=== PATIENT | male | born 1940 | race Caucasian/White ===

== ENCOUNTER 2017-09-08 22:54 | Inpatient (IN) ==
[2017-09-09] MEDS ORDERED: MAGNESIUM SULF RIDER 2 GM in PREMIX 1 EACH IV PRN (00:10)
[2017-09-09] MEDS ORDERED: ACETAMINOPHEN 325 MG TABLET PO PRN (00:10)
[2017-09-09] MEDS ORDERED: ZALEPLON 5 MG CAPSULE PO PRN (00:10)
[2017-09-09] MEDS ORDERED: MAGNESIUM SULF RIDER 4 GM in PREMIX 1 EACH IV PRN (00:10)
[2017-09-09] MEDS: AZITHROMYCIN INJ 500 MG in SODIUM CHLORIDE 0.9% 250 ML IV SCH (01:38)
[2017-09-09] MEDS: ALBUTEROL/IPRATROPIUM 3 ML NEB RESP TX SCH ×4 (02:13→19:00)
[2017-09-09] MEDS: cefTRIAXone 1,000 MG in SYRINGE 1 EACH IV SCH (02:55)
[2017-09-09 04:32] LABS: Basophils % 0.4 % (0.0-0.8); Eosinophils # 0.7 10*3/uL (0.0-0.87); Eosinophils % 7.9 % (0.00-10.9); Hematocrit 28.6 VOL% (42.0-52.0); Hemoglobin 9.9 GM/DL (14.0-18.0); Immature Granulocytes % 0.6 %; Immature Granulocytes Absolute 0.05 #; Lymphocytes # 0.9 10*3/uL (1.4-4.0); Lymphocytes % 9.8 % (21.2-54.2); Mean Corpuscular HGB Conc 34.6 GM/DL (32-36); Mean Corpuscular Hemoglobin 28 PG (27-34); Mean Corpuscular Volume 81.3 FL (87-102); Mean Platelet Volume 9.7 FL (9.6-12.0); Monocytes # 0.7 10*3/uL (0.11-0.8); Monocytes % 7.2 % (1.7-12.7); Neutrophils # 6.7 10*3/uL (1.4-7.4); Neutrophils % 74.1 % (38.7-73.9); Platelet Count 303 T/CUMM (130-400); Red Blood Count 3.52 MC/CUMM (3.8-5.5); Red Cell Distribution Width 11.8 % (9.3-17.3)
[2017-09-09 05:12] LABS: VLDL CHOLESTEROL 17.4 MG/DL
[2017-09-09] MEDS ORDERED: DEXTROSE 50% 25 GM/50 ML VIAL IV PRN (07:58)
[2017-09-09] MEDS ORDERED: GLUCAGON 1 MG VIAL IM PRN (07:58)
[2017-09-09 08:10] LABS: Alanine Aminotransferase 13 U/L (16-61); Albumin 2.8 G/DL (3.4-5.0); Alkaline Phosphatase 108 U/L (45-117); Aspartate Amino Transferase 12 U/L (0-37); Bilirubin,Total < 0.39 MG/DL (0.2-1.0); Blood Urea Nitrogen 37 MG/DL (7-18); Calcium 7.4 MG/DL (8.5-10.1); Total Protein 6.7 G/DL (6.4-8.3)
[2017-09-09 08:11] LABS: Glucose 138 MG/DL (74-106); Osmolality,Calculated 261.5 MOS/KG (273-304); Potassium 4.5 MMOL/L (3.5-5.1); Sodium 125 MMOL/L (136-145)
[2017-09-09 08:25] LABS: PT Patient Result 10.5 SECS
[2017-09-09 08:29] LABS: Albumin 2.8 G/DL (3.4-5.0); Total Protein 6.7 G/DL (6.4-8.3)
[2017-09-09] MEDS: FUROSEMIDE 40 MG/4 ML VIAL IV SCH ×2 (08:42→15:25)
[2017-09-09] MEDS: FOLIC ACID 1 MG TABLET PO SCH (08:42)
[2017-09-09] MEDS: ASPIRIN CHEW 81 MG TABLET PO SCH (08:42)
[2017-09-09] MEDS: PANTOPRAZOLE 40 MG TABLET PO SCH (08:42)
[2017-09-09] MEDS ORDERED: amLODIPine 10 MG TABLET PO SCH (09:00)
[2017-09-09] MEDS ORDERED: METOPROLOL TARTRATE 50 MG TABLET PO SCH (09:00)
[2017-09-09] MEDS ORDERED: ENOXAPARIN 30 MG/0.3 ML SYRINGE SUBCUT SCH (09:00)
[2017-09-09 12:00] LABS: Eosinophils,Pleural Fluid 18 %; Lymphocytes,Pleural Fluid 15 %; Neutrophils,Pleural Fluid 67 %; RBC,Pleural Fluid 348 T/CUMM
[2017-09-09 12:11] LABS: Glucose,Pleural Fluid 146 MG/DL
[2017-09-09] MEDS: INSULIN LISPRO 100 UNIT/ML SUBCUT SCH ×3 (12:14→20:53)
[2017-09-09] MEDS: ISOSORBIDE MONONITRATE 30 MG TABLET PO SCH (12:14)
[2017-09-09] MEDS: hydrALAZINE 25 MG TABLET PO SCH ×2 (15:26→20:50)
[2017-09-09 19:02] LABS: Free T4 (Free Thyroxine) 1.13 NG/DL (0.76-1.46); Thyroid Stimulating Hormone 1.89 uIU/ml (0.358-3.74)
[2017-09-09] MEDS: APIXABAN 2.5 MG TABLET PO SCH (20:50)
[2017-09-09] MEDS: CARVEDILOL 6.25 MG TABLET PO SCH (20:50)
[2017-09-09] MEDS ORDERED: INSULIN GLARGINE 100 UNIT/ML SUBCUT SCH (21:00)
[2017-09-10] MEDS: ALBUTEROL/IPRATROPIUM 3 ML NEB RESP TX SCH ×4 (00:03→19:23)
[2017-09-10] MEDS: AZITHROMYCIN INJ 500 MG in SODIUM CHLORIDE 0.9% 250 ML IV SCH (02:50)
[2017-09-10] MEDS: cefTRIAXone 1,000 MG in SYRINGE 1 EACH IV SCH (03:59)
[2017-09-10 05:46] LABS: Basophils % 0.6 % (0.0-0.8); Eosinophils % 14.9 % (0.00-10.9); Hematocrit 25.9 VOL% (42.0-52.0); Immature Granulocytes % 0.3 %; Immature Granulocytes Absolute 0.02 #; Lymphocytes # 0.9 10*3/uL (1.4-4.0); Lymphocytes % 12.4 % (21.2-54.2); Mean Corpuscular HGB Conc 34.7 GM/DL (32-36); Mean Corpuscular Hemoglobin 28 PG (27-34); Mean Corpuscular Volume 79.9 FL (87-102); Mean Platelet Volume 9.6 FL (9.6-12.0); Monocytes # 0.7 10*3/uL (0.11-0.8); Monocytes % 10.1 % (1.7-12.7); Neutrophils # 4.3 10*3/uL (1.4-7.4); Neutrophils % 61.7 % (38.7-73.9); Platelet Count 282 T/CUMM (130-400); Red Blood Count 3.24 MC/CUMM (3.8-5.5); Red Cell Distribution Width 11.9 % (9.3-17.3); White Blood Count 6.9 T/CUMM (4-12)
[2017-09-10 06:15] LABS: Band Neutrophils 6 % (0-10); Eosinophils 16 % (0-10); Lymphocytes 8 % (20-55); Myelocytes 3 %; Segmented Neutrophils 66 % (50-85); Total Cells Counted 100
[2017-09-10 06:16] LABS: Anisocytosis 1+; Platelet Estimate Normal
[2017-09-10 06:22] LABS: Albumin 2.5 G/DL (3.4-5.0); Bilirubin,Total 0.8 MG/DL (0.2-1.0); Calcium 7.3 MG/DL (8.5-10.1); Osmolality,Calculated 263.9 MOS/KG (273-304); Potassium 4.2 MMOL/L (3.5-5.1); Total Protein 6.1 G/DL (6.4-8.3)
[2017-09-10] MEDS: FUROSEMIDE 40 MG/4 ML VIAL IV SCH (08:43)
[2017-09-10] MEDS: ASPIRIN CHEW 81 MG TABLET PO SCH (08:44)
[2017-09-10] MEDS: hydrALAZINE 25 MG TABLET PO SCH (08:44)
[2017-09-10] MEDS: FOLIC ACID 1 MG TABLET PO SCH (08:45)
[2017-09-10] MEDS: CARVEDILOL 6.25 MG TABLET PO SCH ×2 (08:45→20:33)
[2017-09-10] MEDS: PANTOPRAZOLE 40 MG TABLET PO SCH (08:45)
[2017-09-10] MEDS: APIXABAN 2.5 MG TABLET PO SCH ×2 (08:45→20:33)
[2017-09-10] MEDS: INSULIN LISPRO 100 UNIT/ML SUBCUT SCH ×4 (09:32→20:37)
[2017-09-10] MEDS: ISOSORBIDE MONONITRATE 30 MG TABLET PO SCH (09:32)
[2017-09-11] MEDS: ALBUTEROL/IPRATROPIUM 3 ML NEB RESP TX SCH ×3 (00:23→12:36)
[2017-09-11] MEDS: cefTRIAXone 1,000 MG in SYRINGE 1 EACH IV SCH (04:23)
[2017-09-11 05:31] LABS: Basophils # 0.1 10*3/uL (0.0-0.2); Basophils % 0.8 % (0.0-0.8); Eosinophils # 1.4 10*3/uL (0.0-0.87); Eosinophils % 15.7 % (0.00-10.9); Hematocrit 26.5 VOL% (42.0-52.0); Hemoglobin 9.4 GM/DL (14.0-18.0); Immature Granulocytes % 0.4 %; Immature Granulocytes Absolute 0.04 #; Lymphocytes # 0.7 10*3/uL (1.4-4.0); Lymphocytes % 7.9 % (21.2-54.2); Mean Corpuscular HGB Conc 35.5 GM/DL (32-36); Mean Corpuscular Hemoglobin 29 PG (27-34); Mean Platelet Volume 9.3 FL (9.6-12.0); Monocytes # 0.8 10*3/uL (0.11-0.8); Monocytes % 8.6 % (1.7-12.7); Neutrophils % 66.6 % (38.7-73.9); Platelet Count 296 T/CUMM (130-400); Red Blood Count 3.27 MC/CUMM (3.8-5.5); Red Cell Distribution Width 11.9 % (9.3-17.3)
[2017-09-11 06:00] LABS: Calcium 7.5 MG/DL (8.5-10.1); Osmolality,Calculated 267.9 MOS/KG (273-304); Potassium 4.6 MMOL/L (3.5-5.1)
[2017-09-11 06:03] LABS: Albumin 2.5 G/DL (3.4-5.0); Band Neutrophils 2 % (0-10); Bilirubin,Total 0.4 MG/DL (0.2-1.0); Calcium 7.4 MG/DL (8.5-10.1); Eosinophils 14 % (0-10); Lymphocytes 13 % (20-55); Osmolality,Calculated 267.9 MOS/KG (273-304); Potassium 4.6 MMOL/L (3.5-5.1); Segmented Neutrophils 70 % (50-85); Total Cells Counted 100; Total Protein 6.1 G/DL (6.4-8.3)
[2017-09-11 06:07] LABS: Microcytosis Slight
[2017-09-11] MEDS: FOLIC ACID 1 MG TABLET PO SCH (08:28)
[2017-09-11] MEDS: APIXABAN 2.5 MG TABLET PO SCH (08:28)
[2017-09-11] MEDS: CARVEDILOL 6.25 MG TABLET PO SCH (08:28)
[2017-09-11] MEDS: PANTOPRAZOLE 40 MG TABLET PO SCH (08:28)
[2017-09-11] MEDS: ASPIRIN CHEW 81 MG TABLET PO SCH (08:28)
[2017-09-11] MEDS ORDERED: FUROSEMIDE 40 MG/4 ML VIAL IV SCH (09:00)
[2017-09-11] MEDS ORDERED: AZITHROMYCIN 250 MG TABLET PO SCH (09:00)
[2017-09-11 12:01] VITALS: BP 123/98
[2017-09-11] MEDS: INSULIN LISPRO 100 UNIT/ML SUBCUT SCH ×2 (12:37→12:39)
[2017-09-12] MEDS ORDERED: FUROSEMIDE 80 MG TABLET PO SCH (09:00)
[2017-09-13 18:21] LABS: TB Ag minue Nil Result 0 IU/mL
== END 2017-09-11 14:30 | disposition home or self-care (01) | DRG 291 ==
LOC: EDBD → EDUNIT# → N.ED 22:54 → N.EDINP 09-09 00:10 → SUATTDRO 09-09 00:10 → N.CC 09-09 01:16 → N.TELEN 09-09 13:40
PROVIDERS: ADMIT Internal Medicine; ATTEND Internal Medicine

== ENCOUNTER 2018-06-28 13:36 | Inpatient (IN) ==
[2018-06-28 15:36] LABS: Basophils % 0.4 % (0.0-0.8); Eosinophils # 0.4 10*3/uL (0.0-0.87); Eosinophils % 4.9 % (0.00-10.9); Hematocrit 29.9 VOL% (42.0-52.0); Hemoglobin 10.8 GM/DL (14.0-18.0); Immature Granulocytes % 0.6 %; Immature Granulocytes Absolute 0.05 #; Lymphocytes # 0.7 10*3/uL (1.4-4.0); Lymphocytes % 8.5 % (21.2-54.2); Mean Corpuscular HGB Conc 36.1 GM/DL (32-36); Mean Corpuscular Hemoglobin 28 PG (27-34); Mean Corpuscular Volume 78.7 FL (87-102); Mean Platelet Volume 8.9 FL (9.6-12.0); Monocytes # 0.6 10*3/uL (0.11-0.8); Monocytes % 8.3 % (1.7-12.7); Neutrophils % 77.3 % (38.7-73.9); Platelet Count 275 T/CUMM (130-400); Red Cell Distribution Width 12.4 % (9.3-17.3); White Blood Count 7.8 T/CUMM (4-12)
[2018-06-28 15:46] LABS: PT Patient Result 10.8 SECS; Partial Thromboplastin Time 36.3 SECS (0-40)
[2018-06-28 15:51] LABS: Albumin 3.3 G/DL (3.4-5.0); Bilirubin,Total 0.6 MG/DL (0.2-1.0); Calcium 8.2 MG/DL (8.5-10.1); Osmolality,Calculated 250.8 MOS/KG (273-304); Potassium 3.5 MMOL/L (3.5-5.1); Total Protein 7.9 G/DL (6.4-8.3)
[2018-06-28] MEDS ORDERED: FUROSEMIDE 100 MG/10 ML VIAL IV STA (15:55)
[2018-06-28] MEDS ORDERED: ALBUTEROL NEB SOLN 5 MG/ML 20 ML/BOTTLE RESP TX SCH (16:00)
[2018-06-28 16:08] LABS: Troponin I 0.018 NG/ML (0.00-0.045)
[2018-06-28] MEDS ORDERED: DEXTROSE 50% 25 GM/50 ML VIAL IV PRN (17:00)
[2018-06-28] MEDS ORDERED: MAGNESIUM SULF RIDER 4 GM in PREMIX 1 EACH IV PRN (17:00)
[2018-06-28] MEDS ORDERED: MAGNESIUM SULF RIDER 2 GM in PREMIX 1 EACH IV PRN (17:00)
[2018-06-28] MEDS ORDERED: ACETAMINOPHEN 325 MG TABLET PO PRN (17:00)
[2018-06-28] MEDS ORDERED: GLUCAGON 1 MG VIAL IM PRN (17:00)
[2018-06-28] MEDS: cloNIDine 0.1 MG TABLET PO SCH ×2 (22:13→23:41)
[2018-06-28] MEDS: FERROUS SULFATE 325 MG TABLET PO SCH ×2 (22:14→23:41)
[2018-06-28] MEDS: CARVEDILOL 6.25 MG TABLET PO SCH ×2 (22:14→23:41)
[2018-06-28] MEDS: APIXABAN 2.5 MG TABLET PO SCH ×2 (22:14→23:41)
[2018-06-28] MEDS: ONDANSETRON 4 MG/2 ML VIAL IV PRN (22:32)
[2018-06-28] MEDS ORDERED: hydrALAZINE 20 MG/1 ML VIAL IV PRN (23:37)
[2018-06-28] MEDS: metOLazone 5 MG TABLET PO SCH (23:40)
[2018-06-28] MEDS: INSULIN REGULAR 100 UNIT/ML SUBCUT SCH (23:41)
[2018-06-28] MEDS: NITROGLYCERIN 2% OINT 1 INCH/GM PACK TOP SCH (23:41)
[2018-06-28] MEDS: INSULIN GLARGINE 100 UNIT/ML SUBCUT SCH (23:42)
[2018-06-29] MEDS ORDERED: ENOXAPARIN 120 MG/0.8 ML SYRINGE SUBCUT ONE
[2018-06-29] MEDS ORDERED: ENOXAPARIN 100 MG/ML SYRINGE SUBCUT ONE
[2018-06-29] MEDS: FUROSEMIDE 40 MG/4 ML VIAL IV SCH ×4 (00:16→16:30)
[2018-06-29] MEDS: NITROGLYCERIN 2% OINT 1 INCH/GM PACK TOP SCH ×4 (00:16→18:59)
[2018-06-29] MEDS: MUPIROCIN 2% OINT 22 GM TUBE TOP SCH ×3 (01:17→22:28)
[2018-06-29] MEDS ORDERED: ZALEPLON 5 MG CAPSULE PO PRN (02:38)
[2018-06-29 02:57] LABS: Basophils % 0.3 % (0.0-0.8); Eosinophils # 0.1 10*3/uL (0.0-0.87); Eosinophils % 1.1 % (0.00-10.9); Hematocrit 29.3 VOL% (42.0-52.0); Hemoglobin 10.6 GM/DL (14.0-18.0); Immature Granulocytes % 0.8 %; Immature Granulocytes Absolute 0.08 #; Lymphocytes # 0.6 10*3/uL (1.4-4.0); Lymphocytes % 6.2 % (21.2-54.2); Mean Corpuscular HGB Conc 36.2 GM/DL (32-36); Mean Corpuscular Hemoglobin 28 PG (27-34); Mean Corpuscular Volume 77.1 FL (87-102); Mean Platelet Volume 9.4 FL (9.6-12.0); Monocytes # 0.6 10*3/uL (0.11-0.8); Monocytes % 6.1 % (1.7-12.7); Neutrophils # 8.7 10*3/uL (1.4-7.4); Neutrophils % 85.5 % (38.7-73.9); Platelet Count 287 T/CUMM (130-400); Red Cell Distribution Width 12.4 % (9.3-17.3); White Blood Count 10.2 T/CUMM (4-12)
[2018-06-29 05:00] LABS: Calcium 8.3 MG/DL (8.5-10.1); Osmolality,Calculated 251.8 MOS/KG (273-304); Potassium 3.3 MMOL/L (3.5-5.1); Risk Ratio 3.26; Thyroid Stimulating Hormone 0.932 uIU/ml (0.358-3.74); VLDL CHOLESTEROL 12.8 MG/DL
[2018-06-29] MEDS: POTASSIUM CHLORIDE 20 MEQ TABLET PO PRN (05:28)
[2018-06-29] MEDS: ONDANSETRON 4 MG/2 ML VIAL IV PRN ×2 (05:41→21:35)
[2018-06-29] MEDS ORDERED: POTASSIUM CHLORIDE RIDER 10 MEQ in PREMIX 1 EACH IV PRN (05:42)
[2018-06-29] MEDS ORDERED: POTASSIUM CHLORIDE 20 MEQ TABLET PO ONE (08:18)
[2018-06-29] MEDS ORDERED: ASPIRIN EC 81 MG TABLET PO SCH (09:00)
[2018-06-29 09:18] LABS: Apearance,Urine CLOUDY (Clear); Bilirubin,Urine Negative (Negative); Blood, Urine Moderate mg/dL (Negative); Glucose,Urine (UA) Negative (Negative); Ketones,Urine Negative (Negative); Mucus,Urine Occasional /LPF (Occasional); Nitrite,Urine Negative (Negative); Protein,Urine 30 MG/DL; RBC,Urine 14 /HPF (0-4); Urine Color Yellow (Yellow); Urine Specific Gravity 1.004 (1.001-1.035); Urine Urobilinogen < 2.0 EU/DL (0.2-1.0); WBC,Urine 2317 /HPF (0-6)
[2018-06-29 10:14] LABS: INR 1.1; PT Patient Result 11.4 SECS
[2018-06-29] MEDS: SODIUM CHLORIDE 3% INJ 500 ML IV SCH (11:14)
[2018-06-29] MEDS: INSULIN REGULAR 100 UNIT/ML SUBCUT SCH ×4 (11:15→22:28)
[2018-06-29 12:39] LABS: Hematocrit 29.7 VOL% (42.0-52.0); Hemoglobin 10.9 GM/DL (14.0-18.0)
[2018-06-29 13:01] LABS: Potassium 3.8 MMOL/L (3.5-5.1)
[2018-06-29] MEDS: CARVEDILOL 6.25 MG TABLET PO SCH ×2 (13:09→21:35)
[2018-06-29] MEDS: DOXAZOSIN 4 MG TABLET PO SCH (13:09)
[2018-06-29] MEDS: cloNIDine 0.1 MG TABLET PO SCH ×2 (13:10→21:35)
[2018-06-29] MEDS: metOLazone 5 MG TABLET PO SCH (13:10)
[2018-06-29] MEDS: FOLIC ACID 1 MG TABLET PO SCH (13:10)
[2018-06-29] MEDS: FERROUS SULFATE 325 MG TABLET PO SCH ×2 (13:10→21:35)
[2018-06-29] MEDS: APIXABAN 2.5 MG TABLET PO SCH (13:17)
[2018-06-29 17:50] LABS: Hematocrit 28.4 VOL% (42.0-52.0); Hemoglobin 10.5 GM/DL (14.0-18.0)
[2018-06-29] MEDS: INSULIN GLARGINE 100 UNIT/ML SUBCUT SCH (22:29)
[2018-06-29 23:16] LABS: Hematocrit 24.7 VOL% (42.0-52.0); Hemoglobin 9.2 GM/DL (14.0-18.0)
[2018-06-29] MEDS: DESITIN 4OZ/NYSTATIN 15 GRAM MIXTURE PASTE TOP SCH ×2 (23:49→23:50)
[2018-06-30] MEDS: FUROSEMIDE 40 MG/4 ML VIAL IV SCH ×2 (01:05→05:14)
[2018-06-30] MEDS: NITROGLYCERIN 2% OINT 1 INCH/GM PACK TOP SCH ×5 (01:05→23:20)
[2018-06-30] MEDS: SODIUM CHLORIDE 3% INJ 500 ML IV SCH (04:32)
[2018-06-30 08:08] LABS: Basophils % 0.5 % (0.0-0.8); Eosinophils # 0.3 10*3/uL (0.0-0.87); Hematocrit 28.3 VOL% (42.0-52.0); Hemoglobin 10.3 GM/DL (14.0-18.0); Immature Granulocytes % 0.8 %; Immature Granulocytes Absolute 0.06 #; Lymphocytes # 0.5 10*3/uL (1.4-4.0); Mean Corpuscular HGB Conc 36.4 GM/DL (32-36); Mean Corpuscular Hemoglobin 29 PG (27-34); Mean Corpuscular Volume 78.6 FL (87-102); Mean Platelet Volume 9.4 FL (9.6-12.0); Monocytes # 0.7 10*3/uL (0.11-0.8); Monocytes % 8.9 % (1.7-12.7); Neutrophils # 6.3 10*3/uL (1.4-7.4); Neutrophils % 79.8 % (38.7-73.9); Platelet Count 236 T/CUMM (130-400); Red Cell Distribution Width 12.6 % (9.3-17.3); White Blood Count 7.9 T/CUMM (4-12)
[2018-06-30 08:40] LABS: Calcium 8.5 MG/DL (8.5-10.1); Osmolality,Calculated 261.9 MOS/KG (273-304); Potassium 3.6 MMOL/L (3.5-5.1)
[2018-06-30] MEDS ORDERED: SODIUM CHLORIDE 3% INJ 500 ML IV SCH (09:00)
[2018-06-30] MEDS: DOXAZOSIN 4 MG TABLET PO SCH (09:17)
[2018-06-30] MEDS: FOLIC ACID 1 MG TABLET PO SCH (09:17)
[2018-06-30] MEDS: INSULIN REGULAR 100 UNIT/ML SUBCUT SCH ×4 (09:17→21:16)
[2018-06-30] MEDS: cloNIDine 0.1 MG TABLET PO SCH ×2 (09:17→21:15)
[2018-06-30] MEDS: CARVEDILOL 6.25 MG TABLET PO SCH ×2 (09:18→16:40)
[2018-06-30] MEDS: FERROUS SULFATE 325 MG TABLET PO SCH ×2 (09:18→21:15)
[2018-06-30] MEDS: cefTRIAXone 1,000 MG in SYRINGE 1 EACH IV SCH (09:18)
[2018-06-30] MEDS: DESITIN 4OZ/NYSTATIN 15 GRAM MIXTURE PASTE TOP SCH ×2 (09:19→21:17)
[2018-06-30] MEDS: MUPIROCIN 2% OINT 22 GM TUBE TOP SCH ×2 (11:55→21:18)
[2018-06-30] MEDS: FUROSEMIDE 80 MG TABLET PO SCH (16:40)
[2018-06-30] MEDS: INSULIN GLARGINE 100 UNIT/ML SUBCUT SCH (21:17)
[2018-07-01] MEDS ORDERED: SODIUM CHLORIDE 3% INJ 500 ML IV SCH (03:00)
[2018-07-01 05:47] LABS: Basophils # 0.1 10*3/uL (0.0-0.2); Basophils % 0.7 % (0.0-0.8); Eosinophils # 0.7 10*3/uL (0.0-0.87); Eosinophils % 9.9 % (0.00-10.9); Hematocrit 27.1 VOL% (42.0-52.0); Hemoglobin 9.5 GM/DL (14.0-18.0); Immature Granulocytes % 0.8 %; Immature Granulocytes Absolute 0.06 #; Lymphocytes # 0.8 10*3/uL (1.4-4.0); Lymphocytes % 10.1 % (21.2-54.2); Mean Corpuscular HGB Conc 35.1 GM/DL (32-36); Mean Corpuscular Hemoglobin 29 PG (27-34); Mean Corpuscular Volume 81.9 FL (87-102); Mean Platelet Volume 9.4 FL (9.6-12.0); Monocytes # 0.8 10*3/uL (0.11-0.8); Monocytes % 10.3 % (1.7-12.7); Neutrophils # 5.1 10*3/uL (1.4-7.4); Neutrophils % 68.2 % (38.7-73.9); Platelet Count 229 T/CUMM (130-400); Red Blood Count 3.31 MC/CUMM (3.8-5.5); Red Cell Distribution Width 12.6 % (9.3-17.3); White Blood Count 7.5 T/CUMM (4-12)
[2018-07-01 06:05] LABS: Calcium 7.9 MG/DL (8.5-10.1); Osmolality,Calculated 277.8 MOS/KG (273-304); Potassium 2.9 MMOL/L (3.5-5.1)
[2018-07-01] MEDS: POTASSIUM CHLORIDE 20 MEQ TABLET PO PRN ×4 (06:40→16:33)
[2018-07-01] MEDS: NITROGLYCERIN 2% OINT 1 INCH/GM PACK TOP SCH ×3 (06:44→17:14)
[2018-07-01] MEDS: POTASSIUM CHLORIDE 20 MEQ TABLET PO SCH ×2 (09:00→20:48)
[2018-07-01] MEDS: INSULIN REGULAR 100 UNIT/ML SUBCUT SCH ×4 (09:00→20:49)
[2018-07-01] MEDS: DOXAZOSIN 4 MG TABLET PO SCH (09:00)
[2018-07-01] MEDS: FUROSEMIDE 80 MG TABLET PO SCH ×2 (09:00→16:34)
[2018-07-01] MEDS: FOLIC ACID 1 MG TABLET PO SCH (09:00)
[2018-07-01] MEDS: DESITIN 4OZ/NYSTATIN 15 GRAM MIXTURE PASTE TOP SCH ×2 (09:01→20:49)
[2018-07-01] MEDS: CARVEDILOL 6.25 MG TABLET PO SCH ×2 (09:01→16:32)
[2018-07-01] MEDS: cefTRIAXone 1,000 MG in SYRINGE 1 EACH IV SCH (09:01)
[2018-07-01] MEDS: cloNIDine 0.1 MG TABLET PO SCH ×2 (09:01→20:48)
[2018-07-01] MEDS: MUPIROCIN 2% OINT 22 GM TUBE TOP SCH ×2 (09:01→20:48)
[2018-07-01] MEDS: FERROUS SULFATE 325 MG TABLET PO SCH ×2 (09:01→20:48)
[2018-07-01] MEDS: INSULIN GLARGINE 100 UNIT/ML SUBCUT SCH (20:49)
[2018-07-02] MEDS: NITROGLYCERIN 2% OINT 1 INCH/GM PACK TOP SCH ×3 (02:04→12:17)
[2018-07-02 05:39] LABS: Basophils # 0.1 10*3/uL (0.0-0.2); Basophils % 0.6 % (0.0-0.8); Eosinophils # 0.9 10*3/uL (0.0-0.87); Eosinophils % 7.7 % (0.00-10.9); Hematocrit 26.7 VOL% (42.0-52.0); Immature Granulocytes % 0.8 %; Immature Granulocytes Absolute 0.09 #; Lymphocytes # 0.8 10*3/uL (1.4-4.0); Lymphocytes % 7.2 % (21.2-54.2); Mean Corpuscular HGB Conc 33.7 GM/DL (32-36); Mean Corpuscular Hemoglobin 28 PG (27-34); Mean Corpuscular Volume 83.4 FL (87-102); Mean Platelet Volume 9.6 FL (9.6-12.0); Monocytes % 8.6 % (1.7-12.7); Neutrophils # 8.5 10*3/uL (1.4-7.4); Neutrophils % 75.1 % (38.7-73.9); Platelet Count 244 T/CUMM (130-400); Red Cell Distribution Width 12.9 % (9.3-17.3); White Blood Count 11.4 T/CUMM (4-12)
[2018-07-02 06:13] LABS: Calcium 7.9 MG/DL (8.5-10.1); Osmolality,Calculated 283.7 MOS/KG (273-304); Potassium 4.1 MMOL/L (3.5-5.1)
[2018-07-02] MEDS: INSULIN REGULAR 100 UNIT/ML SUBCUT SCH ×4 (09:06→22:02)
[2018-07-02] MEDS: FUROSEMIDE 80 MG TABLET PO SCH ×2 (09:07→16:00)
[2018-07-02] MEDS: FOLIC ACID 1 MG TABLET PO SCH (09:07)
[2018-07-02] MEDS: POTASSIUM CHLORIDE 20 MEQ TABLET PO SCH ×2 (09:07→22:12)
[2018-07-02] MEDS: CARVEDILOL 6.25 MG TABLET PO SCH ×2 (09:07→16:00)
[2018-07-02] MEDS: cloNIDine 0.1 MG TABLET PO SCH ×2 (09:07→21:10)
[2018-07-02] MEDS: DOXAZOSIN 4 MG TABLET PO SCH (09:08)
[2018-07-02] MEDS: FERROUS SULFATE 325 MG TABLET PO SCH ×2 (09:08→21:10)
[2018-07-02] MEDS: cefTRIAXone 1,000 MG in SYRINGE 1 EACH IV SCH (09:08)
[2018-07-02] MEDS: DESITIN 4OZ/NYSTATIN 15 GRAM MIXTURE PASTE TOP SCH ×2 (09:09→21:10)
[2018-07-02] MEDS: MUPIROCIN 2% OINT 22 GM TUBE TOP SCH ×2 (09:10→21:10)
[2018-07-02] MEDS: INSULIN GLARGINE 100 UNIT/ML SUBCUT SCH (22:03)
[2018-07-03] MEDS: INSULIN REGULAR 100 UNIT/ML SUBCUT SCH ×4 (09:11→21:11)
[2018-07-03] MEDS: FOLIC ACID 1 MG TABLET PO SCH (09:12)
[2018-07-03] MEDS: cefTRIAXone 1,000 MG in SYRINGE 1 EACH IV SCH (09:12)
[2018-07-03] MEDS: cloNIDine 0.1 MG TABLET PO SCH ×2 (09:12→21:09)
[2018-07-03] MEDS: CARVEDILOL 6.25 MG TABLET PO SCH ×2 (09:13→16:22)
[2018-07-03] MEDS: MUPIROCIN 2% OINT 22 GM TUBE TOP SCH ×2 (09:13→21:11)
[2018-07-03] MEDS: FUROSEMIDE 80 MG TABLET PO SCH ×2 (09:13→16:22)
[2018-07-03] MEDS: POTASSIUM CHLORIDE 20 MEQ TABLET PO SCH ×2 (09:13→21:09)
[2018-07-03] MEDS: FERROUS SULFATE 325 MG TABLET PO SCH ×2 (09:13→21:09)
[2018-07-03] MEDS: DOXAZOSIN 4 MG TABLET PO SCH (09:13)
[2018-07-03] MEDS: DESITIN 4OZ/NYSTATIN 15 GRAM MIXTURE PASTE TOP SCH ×2 (09:14→21:11)
[2018-07-03] MEDS: INSULIN GLARGINE 100 UNIT/ML SUBCUT SCH (21:11)
[2018-07-04 08:57] LABS: Calcium 8.3 MG/DL (8.5-10.1); Osmolality,Calculated 280.8 MOS/KG (273-304); Potassium 4.4 MMOL/L (3.5-5.1)
[2018-07-04] MEDS: INSULIN REGULAR 100 UNIT/ML SUBCUT SCH ×3 (09:00→16:48)
[2018-07-04] MEDS: cefTRIAXone 1,000 MG in SYRINGE 1 EACH IV SCH (09:01)
[2018-07-04] MEDS: MUPIROCIN 2% OINT 22 GM TUBE TOP SCH (09:02)
[2018-07-04] MEDS: DESITIN 4OZ/NYSTATIN 15 GRAM MIXTURE PASTE TOP SCH (09:02)
[2018-07-04] MEDS: CARVEDILOL 6.25 MG TABLET PO SCH ×2 (09:25→16:48)
[2018-07-04] MEDS: FUROSEMIDE 80 MG TABLET PO SCH ×2 (09:26→16:48)
[2018-07-04] MEDS: FERROUS SULFATE 325 MG TABLET PO SCH (09:27)
[2018-07-04] MEDS: FOLIC ACID 1 MG TABLET PO SCH (09:27)
[2018-07-04] MEDS: DOXAZOSIN 4 MG TABLET PO SCH (09:27)
[2018-07-04] MEDS: cloNIDine 0.1 MG TABLET PO SCH (09:27)
[2018-07-04] MEDS: POTASSIUM CHLORIDE 20 MEQ TABLET PO SCH (09:27)
[2018-07-04] MEDS ORDERED: PROPOFOL 200 MG/20 ML VIAL IV ONE (11:10)
[2018-07-04] MEDS ORDERED: LIDOCAINE 2% 5 ML VIAL ONE (11:10)
[2018-07-04 16:51] VITALS: BP 162/72
[2018-07-05] MEDS ORDERED: FUROSEMIDE 80 MG TABLET PO SCH (09:00)
== END 2018-07-04 19:03 | disposition home or self-care (01) | DRG 640 ==
LOC: N.EDINP 13:36 → N.ED 13:36 → N.TELES 19:22 → SUATTDRO 06-29 08:35
PROVIDERS: ADMIT Internal Medicine; ATTEND Hospitalist

== ENCOUNTER 2018-10-28 10:22 | Observation (INO) ==
[2018-10-28] MEDS ORDERED: ALBUTEROL/IPRATROPIUM 3 ML NEB RESP TX STA (10:41)
[2018-10-28 11:23] LABS: Basophils % 0.3 % (0.0-0.8); Eosinophils % 0.5 % (0.00-10.9); Hematocrit 30.5 VOL% (42.0-52.0); Immature Granulocytes % 0.6 %; Immature Granulocytes Absolute 0.05 #; Lymphocytes # 0.6 10*3/uL (1.4-4.0); Lymphocytes % 7.9 % (21.2-54.2); Mean Corpuscular HGB Conc 32.8 GM/DL (32-36); Mean Corpuscular Hemoglobin 28 PG (27-34); Mean Platelet Volume 9.9 FL (9.6-12.0); Monocytes # 0.5 10*3/uL (0.11-0.8); Monocytes % 6.3 % (1.7-12.7); Neutrophils # 6.6 10*3/uL (1.4-7.4); Neutrophils % 84.4 % (38.7-73.9); Platelet Count 291 T/CUMM (130-400); Red Blood Count 3.59 MC/CUMM (3.8-5.5); Red Cell Distribution Width 15.3 % (9.3-17.3); White Blood Count 7.8 T/CUMM (4-12)
[2018-10-28 11:36] LABS: PT Patient Result 10.7 SECS; Partial Thromboplastin Time 30.8 SECS (0-40)
[2018-10-28 11:43] LABS: Alanine Aminotransferase 9 U/L (16-61); Albumin 2.3 G/DL (3.4-5.0); Alkaline Phosphatase 50 U/L (45-117); Aspartate Amino Transferase 5 U/L (0-37); Blood Urea Nitrogen 73 MG/DL (7-18); Calcium 8.2 MG/DL (8.5-10.1); Glucose 136 MG/DL (74-106); Osmolality,Calculated 300.5 MOS/KG (273-304); Potassium 3.9 MMOL/L (3.5-5.1); Sodium 139 MMOL/L (136-145); Total Protein 7.7 G/DL (6.4-8.3); Troponin I 0.036 NG/ML (0.00-0.045)
[2018-10-28] MEDS ORDERED: PROMETHAZINE 25 MG/1 ML VIAL IM PRN (13:12)
[2018-10-28] MEDS ORDERED: ACETAMINOPHEN 325 MG TABLET PO PRN (13:12)
[2018-10-28] MEDS ORDERED: ONDANSETRON 4 MG/2 ML VIAL IV PRN (13:12)
[2018-10-28] MEDS ORDERED: GLUCAGON 1 MG VIAL IM PRN (13:35)
[2018-10-28] MEDS ORDERED: DEXTROSE 50% 25 GM/50 ML VIAL IV PRN (13:35)
[2018-10-28] MEDS: PANTOPRAZOLE 40 MG TABLET PO SCH (15:02)
[2018-10-28] MEDS: FUROSEMIDE 40 MG/4 ML VIAL IV SCH (15:02)
[2018-10-28] MEDS ORDERED: FUROSEMIDE 40 MG/4 ML VIAL IV SCH (16:00)
[2018-10-28] MEDS: INSULIN LISPRO 100 UNIT/ML SUBCUT SCH ×2 (17:07→21:03)
[2018-10-28] MEDS ORDERED: FERROUS SULFATE 325 MG TABLET PO SCH (18:00)
[2018-10-28 18:20] LABS: Apearance,Urine Slightly Hazy (Clear); Bacteria,Urine Occasional /HPF (Few); Bilirubin,Urine Negative (Negative); Blood, Urine Negative (Negative); Glucose,Urine (UA) Negative (Negative); Ketones,Urine Negative (Negative); Mucus,Urine Occasional /LPF (Occasional); Nitrite,Urine Negative (Negative); Protein,Urine Negative; RBC,Urine 1 /HPF (0-4); Urine Color Yellow (Yellow); Urine Specific Gravity 1.008 (1.001-1.035); Urine Urobilinogen < 2.0 EU/DL (0.2-1.0); WBC,Urine 40 /HPF (0-6)
[2018-10-28] MEDS: cloNIDine 0.1 MG TABLET PO SCH (20:55)
[2018-10-28] MEDS: APIXABAN 2.5 MG TABLET PO SCH (20:55)
[2018-10-28] MEDS: CARVEDILOL 6.25 MG TABLET PO SCH (20:55)
[2018-10-28] MEDS ORDERED: INSULIN GLARGINE 100 UNIT/ML SUBCUT SCH (21:00)
[2018-10-29 05:58] LABS: Basophils % 0.5 % (0.0-0.8); Eosinophils # 0.2 10*3/uL (0.0-0.87); Eosinophils % 3.7 % (0.00-10.9); Hematocrit 28.8 VOL% (42.0-52.0); Hemoglobin 9.3 GM/DL (14.0-18.0); Immature Granulocytes % 0.8 %; Immature Granulocytes Absolute 0.05 #; Lymphocytes # 0.6 10*3/uL (1.4-4.0); Lymphocytes % 9.8 % (21.2-54.2); Mean Corpuscular HGB Conc 32.3 GM/DL (32-36); Mean Corpuscular Hemoglobin 28 PG (27-34); Mean Corpuscular Volume 85.2 FL (87-102); Mean Platelet Volume 9.9 FL (9.6-12.0); Monocytes # 0.6 10*3/uL (0.11-0.8); Monocytes % 9.3 % (1.7-12.7); Neutrophils # 4.9 10*3/uL (1.4-7.4); Neutrophils % 75.9 % (38.7-73.9); Platelet Count 294 T/CUMM (130-400); Red Blood Count 3.38 MC/CUMM (3.8-5.5); Red Cell Distribution Width 15.3 % (9.3-17.3); White Blood Count 6.5 T/CUMM (4-12)
[2018-10-29 06:12] LABS: Alanine Aminotransferase < 9 U/L (16-61); Alkaline Phosphatase 45 U/L (45-117); Aspartate Amino Transferase 8 U/L (0-37); Blood Urea Nitrogen 72 MG/DL (7-18); Calcium 8.3 MG/DL (8.5-10.1); Glucose 101 MG/DL (74-106); Osmolality,Calculated 297.5 MOS/KG (273-304); Potassium 3.6 MMOL/L (3.5-5.1); Sodium 139 MMOL/L (136-145); Total Protein 7.1 G/DL (6.4-8.3)
[2018-10-29] MEDS ORDERED: cefTRIAXone 1,000 MG in SYRINGE 1 EACH IV SCH (07:00)
[2018-10-29] MEDS ORDERED: FOLIC ACID 1 MG TABLET PO SCH (09:00)
[2018-10-29] MEDS ORDERED: ASPIRIN EC 81 MG TABLET PO SCH (09:00)
[2018-10-29] MEDS ORDERED: MEGESTROL 400 MG/10 ML UDCUP PO SCH (09:00)
[2018-10-29] MEDS: CARVEDILOL 6.25 MG TABLET PO SCH (09:34)
[2018-10-29] MEDS: PANTOPRAZOLE 40 MG TABLET PO SCH (09:34)
[2018-10-29] MEDS: APIXABAN 2.5 MG TABLET PO SCH (09:35)
[2018-10-29] MEDS: cloNIDine 0.1 MG TABLET PO SCH (09:35)
[2018-10-29] MEDS: FUROSEMIDE 40 MG/4 ML VIAL IV SCH (09:36)
[2018-10-29] MEDS: INSULIN LISPRO 100 UNIT/ML SUBCUT SCH (09:36)
[2018-10-29 11:03] VITALS: BP 121/70
[2018-10-29] MEDS ORDERED: DOXAZOSIN 1 MG TABLET PO SCH (12:00)
== END 2018-10-29 13:00 | disposition home or self-care (01) ==
LOC: N.EDINP 10:22 → N.ED 10:22 → N.2E 14:30
PROVIDERS: ADMIT Internal Medicine Geriatric Medicine; ATTEND Internal Medicine Geriatric Medicine